=== PATIENT | female | born 1980 | race Caucasian/White ===

== ENCOUNTER → 2020-12-05 | Outpatient (REF) | LOC: M LAB 11:00 | PROVIDERS: ATTEND Nurse Practitioner Adult Health | DX: Z00.00 Encounter for general adult medical examination without abnormal findings (principal) ==

== ENCOUNTER → 2021-04-02 | Outpatient (CLI) | payer OTHER ==
[2021-04-02 17:35] LABS: BASO # 0.1 10^3/uL (0.0-0.2); BASO % 0.9 % (0.0-1.0); EOS # 0.2 10^3/uL (0.0-0.5); EOS % 2.1 % (0.0-3.0); HEMATOCRIT 37.6 % (36.0-47.0); HEMOGLOBIN 12.1 g/dl (12.0-15.5); LYMPH # 2.5 10^3/uL (1.5-5.0); LYMPH % 27.9 % (24.0-44.0); MEAN CORPUSCULAR HEMOGLOBIN 25.7 pg (27.0-33.0); MEAN CORPUSCULAR HGB CONC 32.2 g/dl (32.0-36.5); MONO # 0.7 10^3/uL (0.0-0.8); MONO % 7.5 % (2.0-8.0); NEUTROPHILS # 5.6 10^3/uL (1.5-8.5); NEUTROPHILS % 61.1 % (36.0-66.0); PLATELET COUNT, AUTOMATED 333 10^3/uL (150-450); WHITE BLOOD COUNT 9.1 10^3/uL (4.0-10.0)
[2021-04-02 18:17] LABS: ALBUMIN 3.8 GM/DL (3.2-5.2); ALT/SGPT 19 U/L (12-78); AMYLASE 35 U/L (25-115); BILIRUBIN,TOTAL 0.1 MG/DL (0.2-1.0); BLOOD UREA NITROGEN 10 MG/DL (7-18); CALCIUM LEVEL 8.6 MG/DL (8.5-10.1); CARBON DIOXIDE LEVEL 26 MEQ/L (21-32); CHLORIDE LEVEL 102 MEQ/L (98-107); CREATININE FOR GFR 0.66 MG/DL (0.55-1.30); GLOMERULAR FILTRATION RATE > 60.0 (>60); GLUCOSE, FASTING 202 MG/DL (70-100); LIPASE 84 U/L (73-393); POTASSIUM SERUM 4.1 MEQ/L (3.5-5.1); SODIUM LEVEL 135 MEQ/L (136-145); TOTAL PROTEIN 7.2 GM/DL (6.4-8.2)
[2021-04-03 10:24] LABS: HEMOGLOBIN A1c 7.3 %
== END ==
LOC: M LAB 16:31
PROVIDERS: ATTEND Nurse Practitioner Family
DX: R63.5 Abnormal weight gain (principal); R10.9 Unspecified abdominal pain; R14.0 Abdominal distension (gaseous); R00.2 Palpitations
CPT/HCPCS: 36415; 80053; 82150; 83036; 83690; 84443; 85025; G0463

== ENCOUNTER → 2021-04-02 | Outpatient (REF) | payer OTHER | LOC: M SFHCLERA 14:57 | PROVIDERS: ATTEND Nurse Practitioner Family | DX: R10.9 Unspecified abdominal pain (principal); R14.0 Abdominal distension (gaseous); R00.2 Palpitations; R63.5 Abnormal weight gain; Z53.8 Procedure and treatment not carried out for other reasons ==

== ENCOUNTER → 2021-04-03 | Outpatient (REF) | payer OTHER | LOC: M SFHCLERA 08:38 | PROVIDERS: ATTEND Nurse Practitioner Family | DX: R63.5 Abnormal weight gain (principal); Z53.9 Procedure and treatment not carried out, unspecified reason ==

== ENCOUNTER → 2021-04-03 | Outpatient (CLI) | payer OTHER ==
[~2021-04-03] MED LIST: GASTROGRAFIN SOLUTION 30ML (Q9963) As Ordered ONE; ISOVUE-370 76% 100ML VIAL As Ordered ONE
--- NOTE | 2021-04-03 11:31 | REP ---
INDICATION: ABD PAIN, BLOATING, CHEST WALL PAIN. COMPARISON: None. TECHNIQUE: Noncontrast scanning with the coronal and sagittal reconstructions. FINDINGS: The lung blackwood are well inflated. There is no infiltrate, effusion, pleural thickening or pleural based mass. No pneumothorax or pneumomediastinum. The heart is not enlarged. There is no pericardial thickening or effusion. Left thyroid lobe is enlarged and extends into the upper chest slightly displacing the trachea to the right of midline. A 3.2 x 3.1 cm nodule is suggested off the thyroid left lower pole. The bone windows show the spine, sternum, manubrium, medial clavicles, scapulae, small portions of the humeral heads and visualized ribs without any acute finding. There is no pathologic sized mediastinal, hilar, axillary or supraclavicular adenopathy. Thymic remnant in the anterior superior mediastinum is seen. IMPRESSION: 1. Negative CT chest for parenchymal lung findings, pleural lesion or abnormality, pneumothorax or pneumomediastinum. 2. The heart, mediastinal lymph nodes, aorta and trachea are grossly unremarkable. 3. An enlarged left thyroid lobe noted extending inferiorly into the upper chest with a suspected 3.1 x 3.2 cm nodule off the lower pole. 4. Bony chest was unremarkable. No hiatal hernia. Please see the CT abdomen this date for discussion of upper abdominal structures. <Electronically signed by Baltazar Junior > 04/03/21 [id number]
--- NOTE | 2021-04-03 11:45 | REP ---
INDICATION: ABD PAIN, BLOATING, CHEST WALL PAIN. COMPARISON: None. TECHNIQUE: Oral Gastrografin mixture per our bowel contrast protocol followed by bolus of 100 mL Isovue 370 and scanning through the abdomen and pelvis. Coronal and sagittal reconstructions provided. FINDINGS: CT abdomen: The lung bases are clear. Liver not grossly enlarged 17 cm vertical diameter in the mid clavicular line. Left lobe not enlarged and contours of the liver are smooth. No focal hepatic mass or biliary dilatation. No upper abdominal ascites. Spleen measures at 13.3 x 4.7 x 7.2 cm giving splenic index of 450. Normal range less than 480. No focal splenic lesion. Gallbladder without calcified stone or mass. Adrenal glands are normal. The pancreas is unremarkable. Stool and gas are scattered throughout the colon without sign of colitis or diverticulitis in its abdominal portion. Oral contrast in the proximal small bowel to mid ileum without dilatation wall thickening or air-fluid levels no mesenteric edema. Appendix is retrocecal kidneys show symmetric enhancement there is no stone, mass, hydronephrosis, hydroureter or ureteral stone. The aorta is unremarkable with a few calcifications no periaortic, other retroperitoneal or mesenteric pathologic sized lymphadenopathy. Lung window review of all CT slices shows no perforation or free air. The bone windows show vertebral bodies and posterior elements intact. Visualized ribs intact. CT pelvis: The bony sacrum, SI joints, pelvis and hips show no acute finding. Distal left colon, sigmoid and rectum were unremarkable uterus anteverted and not enlarged. Appendix unremarkable. The adnexa are grossly symmetric with a few follicles, the largest is 2 cm on the right (cyst defined at 2.5 cm). There is no pelvic free fluid. Bladder partially filled, it shows no wall thickening, mass or stone. Distal ureters are not dilated and show no stone. There is no ventral or inguinal hernia nor pathologic sized inguinal adenopathy. IMPRESSION: 1. No colonic or small bowel acute abnormality. Appendix normal the stomach without hiatal hernia or other abnormality. I see no ascites, perforation or free air in the abdomen or pelvis. 2. Kidneys, ureters and bladder without stone or hydronephrosis nor other acute finding. 3. Solid organs in the upper abdomen were normal. Gallbladder without calcified stone and the stomach without hiatal hernia. 4. Visualized bones unremarkable. <Electronically signed by Baltazar Junior > 04/03/21 [id number]
== END ==
LOC: M RAD 08:54
PROVIDERS: ATTEND Nurse Practitioner Family
DX: R10.9 Unspecified abdominal pain (principal); R14.0 Abdominal distension (gaseous); R07.89 Other chest pain
CPT/HCPCS: 71250; 74177; Q9963; Q9967

== ENCOUNTER → 2021-04-10 | Outpatient (CLI) | payer OTHER ==
--- NOTE | 2021-04-10 10:12 | REP ---
INDICATION: THYROID NODULE. Enlarged left thyroid with nodule seen on CT. Comparison chest CT study April 03, 2021 COMPARISON: CT study April 03, 2021.. TECHNIQUE: High-resolution bilateral thyroid sonography. FINDINGS: Thyroid isthmus is 0.3 cm in thickness. Right lobe dimensions are 4.3 x 1.6 x 1.2 cm. Left lobe measures 5.7 x 2.3 x 2.7 cm. There is a large heterogeneous predominantly solid nodule in the left lobe containing small cystic areas with well-defined margins. There are also hyperechoic foci within the nodule consistent with microcalcifications. This measures 2.8 x 3.5 x 2.5 cm. Just superior to this there is a 1.1 x 1.4 x 1.1 cm hypoechoic nodule as well. No significant finding in the right lobe. There are 2 tiny hypoechoic areas measuring 0.2 and 0.3 cm respectively. There is no evidence of extra thyroid abnormality. IMPRESSION: 3.5 cm nodule lower pole left lobe of the thyroid containing microcalcifications. Recommend ultrasound-guided fine needle aspiration for further evaluation. <Electronically signed by Harvey Aocsta > 04/10/21 [id number]
== END ==
LOC: M RAD 07:28
PROVIDERS: ATTEND Nurse Practitioner Family
DX: E04.1 Nontoxic single thyroid nodule (principal)